=== PATIENT | female | born 1990 | race Caucasian/White ===

== ENCOUNTER 2017-12-09 09:02 | Emergency (ER) | payer OTHER ==
[2017-12-09 09:24] VITALS: BP 118/72
--- NOTE | 2017-12-09 10:44 | UC ---
Complaint Female HPI - HPI Summary HPI Summary: 2 WEEKS OF DYSURIA, FREQUENCY AND MALODOROUS WHITE VAGINAL DISCHARGE. HAS SOME PERINEAL IRRITATION. DENIES VAGINAL BLEEDING, FEVER, NAUSEA OR BACK PAIN. HAS UNPROTECTED SEX WITH . IS IN A MONOGAMOUS RELATIONSHIP WITH HIM AND IS NOT CONCERNED ABOUT STD. - History Of Current Complaint Chief Complaint: UCGU Stated Complaint: URINARY COMPLAINT Time Seen by Provider: 12/09/17 09:45 Hx Obtained From: Patient Hx Last Menstrual Period: IUD Onset/Duration: Gradual Onset, Lasting Weeks, Still Present Timing: Constant Severity Initially: Moderate Severity Currently: Moderate Pain Intensity: 2 Pain Scale Used: 0-10 Numeric Character: Burning Aggravating Factor(s): Nothing Associated Signs And Symptoms: Positive: Vaginal Discharge. Negative: Fever, Back Pain, Nausea - Allergies/Home Medications Allergies/Adverse Reactions: Allergies Allergy/AdvReac Type Severity Reaction Status Date / Time No Known Allergies Allergy Verified 12/09/17 09:18 Home Medications: Home Medications Levonorgestrel (Iud) [Mirena IUD] 1 imp ONCE 12/09/17 [History Confirmed ] PMH/Surg Hx/FS Hx/Imm Hx Previously Healthy: Yes - Surgical History Surgical History: Yes Surgery Procedure, Year, and Place: b/l inguinal hernia as infant. gallbladder - Family History Known Family History: Positive: Cardiac Disease, Hypertension - Social History Alcohol Use: None Substance Use Type: None Smoking Status (MU): Heavy Every Day Tobacco Smoker Type: Cigarettes Amount Used/How Often: 1 PPD Review of Systems Constitutional: Negative Respiratory: Negative Cardiovascular: Negative Gastrointestinal: Negative Genitourinary: Dysuria, Frequency, Vaginal/Penile Discharge All Other Systems Reviewed And Are Negative: Yes Physical Exam Triage Information Reviewed: Yes Appearance: Well-Appearing, No Pain Distress, Well-Nourished Vital Signs: Initial Vital Signs Temp 98.7 F 12/09/17 09:19 Pulse 79 12/09/17 09:19 Resp 16 12/09/17 09:19 BP 118/72 12/09/17 09:19 Pulse Ox 100 12/09/17 09:19 Vital Signs Reviewed: Yes Eyes: Positive: Conjunctiva Clear ENT: Positive: Hearing grossly normal Neck: Positive: Supple Respiratory: Positive: No respiratory distress, No accessory muscle use Cardiovascular: Positive: Pulses Normal Abdomen Description: Positive: Nontender, Soft. Negative: CVA Tenderness (R), CVA Tenderness (L), Distended, Guarding Musculoskeletal: Positive: No Edema Neurological: Positive: Alert Psychological: Positive: Age Appropriate Behavior Skin: Negative: rashes UC Physical Exam Vital Signs On Initial Exam: Initial Vitals Temp Pulse Resp BP Pulse Ox 98.7 F 79 16 118/72 100 12/09/17 09:19 12/09/17 09:19 12/09/17 09:19 12/09/17 09:19 12/09/17 09:19 - Genitalia Exam Female Genitourinary: Normal External Exam, Other - THIN WHITE/GREEN MALODOROUS DISCHARGE IN VAGINAL VAULT. IUD STRINGS VISUALIZED. NO CMT OR ADNEXAL TENDERNESS. Diagnostics - Laboratory Diagnostic Studies Completed/Ordered: URINE DIP SP. GR. 1.020, 1+ PROTEIN, 1+ BILI, TRACE KETONES Complaint Female Dx - Course Course Of Treatment: GIVEN SX AND CLINICAL PRESENTATION WILL TX EMPIRICALLY FOR BV. SWAB SENT FOR TESTING. - Differential Dx/Diagnosis Provider Diagnoses: BACTERIAL VAGINOSIS Discharge - Discharge Plan Condition: Stable Disposition: HOME Prescriptions: Metronidazole [Flagyl 500 MG TAB] 500 mg PO BID #14 tab Patient Education Materials: Bacterial Vaginosis (ED), Vaginitis (ED) Referrals: Non Staff,Doctor [Primary Care Provider] - Additional Instructions: SWAB DONE TODAY AND SENT FOR TESTING FOR BV, YEAST AND TRICHOMONAS. WE WILL CALL YOU IF YOUR TREATMENT NEEDS TO BE ALTERED. URINE TEST NEGATIVE FOR UTI. FOLLOW-UP WITH PCP OR HIDE PASTER IF NEEDED. CALL THE NUMBER BELOW FOR ASSISTANCE IN ESTABLISHING WITH A PCP An additional resource available to assist in finding the appropriate physician for your health care needs is the [facility] ([facility]). You may contact them by calling [phone].
== END 2017-12-09 10:55 | disposition home or self-care (01) ==
LOC: UCCORT 09:02
DX: N76.0 Acute vaginitis (principal); F17.210 Nicotine dependence, cigarettes, uncomplicated
CPT/HCPCS: 81003; 87480; 87510; 87660; 99212; G0463

== ENCOUNTER 2018-01-16 15:57 | Emergency (ER) | payer OTHER ==
--- NOTE | 2018-01-16 17:42 | UC ---
Respiratory Complaint HPI - HPI Summary HPI Summary: 27 y/o female presents to the urgent care c/o productive cough w/ green phlegm for the past week. Pt reports sore throat and low grade fever started about 2 days ago. Pain w/ swallowing is 7/10. She took 3 tabs of amoxicillin PO she had at home at the beginning of symptoms. She thinks it helped. Pt has been taking a lot of cough drops that her tongue is burning. Pt denies SOB, wheezing , SOB, chest pain, abdominal pain, N/V/D. - History of Current Complaint Hx Obtained From: Patient Hx Last Menstrual Period: IUD Onset/Duration: Gradual Onset, Lasting Days - 1 week, Still Present, Worse Since - 2 days Timing: Constant Severity Initially: Mild Severity Currently: Moderate Pain Intensity: 7 - sore throat Pain Scale Used: 0-10 Numeric Character: Cough: Nonproductive Aggravating Factors: Recumbent Position Alleviating Factors: OTC Meds Associated Signs And Symptoms: Positive: Chills, Nasal Congestion - Risk Factors Pulmonary Embolism Risk Factors: Negative Cardiac Risk Factors: Negative Pseudomonas Risk Factors: Negative Tuberculosis Risk Factors: Negative <Catia Campbell - Last Filed: 01/16/18 18:55> <Felicita Licona - Last Filed: 01/16/18 19:14> - History of Current Complaint Stated Complaint: COUGH, SORE THROAT Time Seen by Provider: 01/16/18 17:39 - Allergies/Home Medications Allergies/Adverse Reactions: Allergies Allergy/AdvReac Type Severity Reaction Status Date / Time No Known Allergies Allergy Verified 01/16/18 17:59 Home Medications: Home Medications Levonorgestrel (Iud) [Mirena IUD] 20 mcg IU DAILY 01/16/18 [History Confirmed ] PMH/Surg Hx/FS Hx/Imm Hx Previously Healthy: Yes - Pt denies PMHX - Surgical History Surgical History: Yes Surgery Procedure, Year, and Place: b/l inguinal hernia as . gallbladder - Family History Known Family History: Positive: Cardiac Disease, Hypertension - Social History Occupation: Employed Full-time Lives: With Family Alcohol Use: None Substance Use Type: None Smoking Status (MU): Heavy Every Day Tobacco Smoker Type: Cigarettes Amount Used/How Often: 1 PPD <Catia Campbell - Last Filed: 01/16/18 18:55> Review of Systems Constitutional: Fever - low grade fever at home Skin: Negative Eyes: Negative ENT: Sore Throat, Nasal Discharge Respiratory: Cough - productive w/ yellowish phlegm Cardiovascular: Negative Gastrointestinal: Negative Genitourinary: Negative Motor: Negative Neurovascular: Negative Musculoskeletal: Negative Neurological: Negative Psychological: Negative Is Patient Immunocompromised?: No All Other Systems Reviewed And Are Negative: Yes <TamayoMarlonCatia - Last Filed: 01/16/18 18:55> Physical Exam - Summary Physical Exam Summary: VITAL SIGNS: Reviewed. GENERAL: Patient is a well developed and nourished female who is sitting comfortable in the examining table. Patient is not in any acute respiratory distress. HEAD AND FACE: No signs of trauma. No ecchymosis, hematomas or skull depressions. No sinus tenderness. EYES: PERRLA, EOMI x 2, No injected conjunctiva, no nystagmus. No photophobia. EARS: Hearing grossly intact. Ear canals and tympanic membranes are within normal limits. MOUTH: Positive pharynx with erythema, exudates, palatal petechiae. B/L tonsillar enlargement with exudate. Uvula in midline. NECK: Supple, trachea is midline, Positive anterior cervical lymphadenopathy, no JVD, no carotid bruit, no c-spine tenderness, neck with full ROM. No meningeal signs, no Kernig's or brudzinskis signs. CHEST: Symmetric, no tenderness at palpation LUNGS: positive breath sound, Positive posterior upper B/L w/ mild rhonchi, no wheezes, no crackles, or rales CVS: Regular rate and rhythm, S1 and S2 present, no murmurs or gallops appreciated. ABDOMEN: Soft, non-tender. No signs of distention. No rebound no guarding, and no masses palpated. Bowel sounds are normal. EXTREMITIES: FROM in all major joints, no edema, no cyanosis or clubbing. NEURO: Alert and oriented x 3. No acute neurological deficits. Speech is normal and follows commands. SKIN: Dry and warm Triage Information Reviewed: Yes <AdrianCatia - Last Filed: 01/16/18 18:55> Vital Signs: Initial Vital Signs Temp 99.2 F 01/16/18 17:56 Pulse 92 01/16/18 17:56 Resp 16 01/16/18 17:56 BP 136/74 01/16/18 17:56 Pulse Ox 99 01/16/18 17:56 <Felicita Licona - Last Filed: 01/16/18 19:14> Respiratory Course/Dx - Course Course Of Treatment: 27 y/o female presents to the urgent care c/o productive cough w/ green phlegm for the past week. Pt reports sore throat and low grade fever started about 2 days ago. Pain w/ swallowing is 7/10. She took 3 tabs of amoxicillin PO she had at home at the beginning of symptoms. She thinks it helped. Pt has been taking a lot of cough drops that her tongue is burning. Pt denies SOB, wheezing, SOB, chest pain, abdominal pain, N/V/D. Hx obtained. Pt w / posterior upper lungs w/ mild rhonchi and pharyngitis on examination. Rapid strep ordered: negative. Pt with Acute bronchitis on examination. Pt Rx Z-favio PO and Tessalon tabs PO to alleviate cough. Rx Ibuprofen Po to alleviate pain and swelling. Pt advised to increase fluid intake and eat well. if not improvement or worsening of symptoms to return to the urgent care or f/u with PCP for further management. Pt understood and agreed with plan of care. - Differential Dx/Diagnosis Differential Diagnosis/HQI/PQRI: Bronchitis, Influenza, Sinusitis, Other - pharyngitis, URI Provider Diagnoses: 1-Acute bronchitis. 2-Pharyngitis. 3-cough <Catia Campbell - Last Filed: 01/16/18 18:55> Discharge <Catia Campbell - Last Filed: 01/16/18 18:55> <Felicita Licona - Last Filed: 01/16/18 19:14> - Discharge Plan Condition: Stable Disposition: HOME Prescriptions: Azithromyxin FAVIO (NF) [Z-Favio (Zithromax) 250 mg tabs #6] 2 tab PO .TODAY, THEN 1 DAILY #6 tab Benzonatate CAP* [Tessalon 100 MG CAP*] 100 mg PO TID PRN #21 cap PRN Reason: Cough Ibuprofen TAB* [Motrin TAB* 800 MG] 800 mg PO Q6H PRN #20 tab PRN Reason: Sore Throat Patient Education Materials: Pharyngitis (ED), Acute Bronchitis (ED) Referrals: [facility] [Outside] Additional Instructions: 1-Please take full course of antibiotic to avoid resistance. 2-Take Tessalon PO tabs as directed to alleviate cough. Increase fluid intake , rest and eat well. 3-Take Ibuprofen PO q6-8hrs prn to alleviate pain and swelling. 4- If symptoms do not improve or worsen or your develop SOB with fever and severe wheezing please go immediately to the ER further evaluation and treatment. 5- If not improvement please F/u with your PCP in 2-3 days for further management Attestation Statement User Type: Provider - I was available for consult. This patient was seen by the MILANA. The patient was not presented to, seen by, or examined by me. Gianni <Felicita Licona - Last Filed: 01/16/18 19:14>
[2018-01-16 17:59] VITALS: BP 136/74
== END 2018-01-16 18:42 | disposition home or self-care (01) ==
LOC: UCCORT 15:57
DX: J20.9 Acute bronchitis, unspecified (principal); J02.9 Acute pharyngitis, unspecified; R05 Cough; F17.210 Nicotine dependence, cigarettes, uncomplicated
CPT/HCPCS: 87651; 99212; G0463

== ENCOUNTER 2019-04-02 16:11 | Emergency (ER) | payer SELFPAY ==
[2019-04-02 17:11] VITALS: BP 134/87
--- NOTE | 2019-04-02 17:40 | UC ---
Pediatric Illness HPI - History Of Current Complaint Chief Complaint: UCRespiratory Time Seen by Provider: 04/02/19 17:33 - Allergies/Home Medications Allergies/Adverse Reactions: Allergies Allergy/AdvReac Type Severity Reaction Status Date / Time No Known Allergies Allergy Verified 04/02/19 17:07 Physical Exam Vital Signs: Initial Vital Signs Temp 98.8 F 04/02/19 17:05 Pulse 98 04/02/19 17:05 Resp 20 04/02/19 17:05 BP 134/87 04/02/19 17:05 Pulse Ox 100 04/02/19 17:05 Pediatric Illness Course/Dx - Course Course Of Treatment: cost is a concern for pt thus will tx OM with tid amoxicillin and cough with prednisone and hold off on an inhaler. - Differential Dx/Diagnosis Provider Diagnosis: URI (upper respiratory infection), Otitis media, Bronchitis Discharge - Sign-Out/Discharge Documenting (check all that apply): Patient Departure All imaging exams completed and their final reports reviewed: No Studies - Discharge Plan Condition: Stable Disposition: HOME Prescriptions: Amoxicillin PO (*) [Amoxicillin 500 MG CAP*] 500 mg PO TID 10 Days #30 cap predniSONE [Prednisone 20 MG TAB] 40 mg PO DAILY 3 Days #6 tablet Patient Education Materials: Ear Infection (ED), Upper Respiratory Infection ( DC), Acute Bronchitis (ED) Forms: *Work Release Referrals: JOVANNY Villatoro [Medical Doctor] - 7 Days - Billing Disposition and Condition Condition: STABLE Disposition: Home
--- NOTE | 2019-04-02 18:06 | UC ---
General HPI - HPI Summary HPI Summary: per triage, Headache, left ear pain (now resolved), nasal congestion/discharge, constant sore throat, "terrible ... white, phlemgy" productive cough, and nausea "the only time I throw up is when I cough a lot" for one day. No known fever. Needs a work note. no hx asthma. + smoker, wheezing and some sob. - History of Current Complaint Chief Complaint: UCRespiratory Stated Complaint: SORE THROAT Time Seen by Provider: 04/02/19 17:33 Hx Obtained From: Patient Hx Last Menstrual Period: Mirena IUD Onset/Duration: Gradual Onset Timing: Constant Pain Intensity: 6 Alleviating: nothing - Allergy/Home Medications Allergies/Adverse Reactions: Allergies Allergy/AdvReac Type Severity Reaction Status Date / Time No Known Allergies Allergy Verified 04/02/19 17:07 PMH/Surg Hx/FS Hx/Imm Hx Previously Healthy: Yes - Surgical History Surgical History: Yes Surgery Procedure, Year, and Place: Cholecystectomy, ~2017, [place]; Bilateral Inguinal Herniorrhaphy as an infant - Family History Known Family History: Positive: Cardiac Disease, Hypertension - Social History Lives: With Family Alcohol Use: None Substance Use Type: None Smoking Status (MU): Heavy Every Day Tobacco Smoker Type: Cigarettes Amount Used/How Often: 1 PPD Length of Time of Smoking/Using Tobacco: Since Age 18 Review of Systems All Other Systems Reviewed And Are Negative: Yes Constitutional: Negative: Fever ENT: Positive: Sore Throat, Ear Ache, Nasal Discharge Respiratory: Positive: Shortness Of Breath, Cough Neurological: Positive: Headache Physical Exam Triage Information Reviewed: Yes Appearance: Well-Appearing Vital Signs: Initial Vital Signs Temp 98.8 F 04/02/19 17:05 Pulse 98 04/02/19 17:05 Resp 20 04/02/19 17:05 BP 134/87 04/02/19 17:05 Pulse Ox 100 04/02/19 17:05 Vital Signs Reviewed: Yes Eyes: Positive: Conjunctiva Clear ENT: Positive: Pharyngeal erythema - slight, Nasal congestion, Nasal drainage - clear, TMs normal - R, TM red - L, Uvula midline. Negative: Trismus, Muffled voice, Hoarse voice, Sinus tenderness Neck: Positive: Supple, Nontender, Enlarged Nodes @ - peritonsialr nodes Respiratory: Positive: No respiratory distress, Decreased breath sounds, Other: - Bronchospastic-congested cough.. Negative: Crackles, Rhonchi Cardiovascular: Positive: RRR, No Murmur Abdomen Description: Positive: Nontender Musculoskeletal: Positive: ROM Intact Neurological: Positive: Alert Psychological: Positive: Normal Response To Family, Age Appropriate Behavior Skin Exam: Normal Course/Dx - Course Course Of Treatment: medication cost is an issue thus amoxicillin tid being used plus will avoid albuterol mdi and tx with prednisone x 3 days. - Differential Dx - Multi-Symptom Differential Diagnoses: Other - L OM x 2 days thus will tx with antibiotic. - Diagnoses Provider Diagnosis: URI (upper respiratory infection), Otitis media, Bronchitis Discharge - Sign-Out/Discharge Documenting (check all that apply): Patient Departure All imaging exams completed and their final reports reviewed: No Studies - Discharge Plan Condition: Stable Disposition: HOME Prescriptions: Amoxicillin PO (*) [Amoxicillin 500 MG CAP*] 500 mg PO TID 10 Days #30 cap predniSONE [Prednisone 20 MG TAB] 40 mg PO DAILY 3 Days #6 tablet Patient Education Materials: Ear Infection (ED), Upper Respiratory Infection ( DC), Acute Bronchitis (ED) Forms: *Work Release Referrals: JOVANNY Villatoro [Medical Doctor] - 7 Days - Billing Disposition and Condition Condition: STABLE Disposition: Home - Attestation Statements Provider Attestation: Per institutional requirements, I have reviewed the chart, however, I was not consulted specifically or made aware of this patient by the midlevel provider. I did not personally evaluate, interact with , or disposition this patient.
== END 2019-04-02 17:59 | disposition home or self-care (01) ==
LOC: UCCORT 16:11
DX: J06.9 Acute upper respiratory infection, unspecified (principal); H66.92 Otitis media, unspecified, left ear; J40 Bronchitis, not specified as acute or chronic; F17.210 Nicotine dependence, cigarettes, uncomplicated
CPT/HCPCS: 99212; G0463

== ENCOUNTER 2020-01-30 16:49 | Emergency (ER) | payer OTHER ==
[2020-01-30 17:01] VITALS: BP 114/70
--- NOTE | 2020-01-30 17:04 | UC ---
Respiratory Complaint HPI - HPI Summary HPI Summary: 29-year-old female who has had cold and cough symptoms over the past 3 days. She is a smoker. - History of Current Complaint Chief Complaint: UCRespiratory Stated Complaint: COUGH/CHEST CONGESTION/SORE THROAT Time Seen by Provider: 01/30/20 17:00 Hx Obtained From: Patient Hx Last Menstrual Period: 01/23/20 ?: No Onset/Duration: Gradual Onset, Lasting Days Timing: Intermittent Episodes Severity Initially: Mild Severity Currently: Mild Pain Intensity: 0 Character: Cough: Nonproductive Aggravating Factors: Deep Breaths Alleviating Factors: Nothing Associated Signs And Symptoms: Positive: Wheezing, URI, Nasal Congestion - Allergies/Home Medications Allergies/Adverse Reactions: Allergies Allergy/AdvReac Type Severity Reaction Status Date / Time No Known Allergies Allergy Verified 01/30/20 16:58 Home Medications: Home Medications Levonorgestrel (Iud) [Mirena IUD] 20 mcg IU DAILY 01/16/18 [History Confirmed ] Albuterol HFA INHALER* [Ventolin HFA Inhaler*] 2 puff INH Q4H PRN 5 Days #1 mdi 01/30/20 [Rx] Benzonatate CAP* [Tessalon 100 MG CAP*] 100 mg PO TID PRN #30 cap 01/30/20 [Rx] predniSONE 10 mg TAB [Deltasone 10 MG TAB*] 10 mg PO DAILY 12 Days #30 tab 01/29 [Rx] PMH/Surg Hx/FS Hx/Imm Hx Previously Healthy: Yes - Surgical History Surgical History: Yes Surgery Procedure, Year, and Place: Cholecystectomy, ~2017, [place]; Bilateral Inguinal Herniorrhaphy as an - Family History Known Family History: Positive: Cardiac Disease, Hypertension - Social History Occupation: Employed Full-time Lives: With Family Alcohol Use: None Substance Use Type: None Smoking Status (MU): Heavy Every Day Tobacco Smoker Type: Cigarettes Amount Used/How Often: 1 PPD Length of Time of Smoking/Using Tobacco: Since Age 18 Review of Systems All Other Systems Reviewed And Are Negative: Yes ENT: Positive: Nasal Discharge, Sinus Congestion Respiratory: Positive: Cough - Cough with wheezing Is Patient Immunocompromised?: No Physical Exam Triage Information Reviewed: Yes Appearance: Well-Appearing, No Pain Distress, Well-Nourished Vital Signs: Initial Vital Signs Temp 98.3 F 01/30/20 16:58 Pulse 68 01/30/20 16:58 Resp 16 01/30/20 16:58 BP 114/70 01/30/20 16:58 Pulse Ox 100 01/30/20 16:58 Vital Signs Reviewed: Yes Eyes: Positive: Conjunctiva Clear ENT: Positive: Pharynx normal, Nasal congestion, Nasal drainage - Clear nasal coryza, TMs normal, Uvula midline Neck: Positive: Supple, Nontender, No Lymphadenopathy Respiratory: Positive: No respiratory distress, No accessory muscle use, Wheezing - Wheezing with forced expiration posteriorly.. Negative: Rhonchi Cardiovascular: Positive: RRR, No Murmur, Pulses Normal, Brisk Capillary Refill Musculoskeletal Exam: Normal Neurological Exam: Normal Psychological Exam: Normal Skin Exam: Normal Respiratory Course/Dx - Course Course Of Treatment: DuoNeb treatment: The patient felt much better following the DuoNeb treatment however she does have continued wheezing but decreased wheezing and better air movement. She is in no distress and she is comfortable here. - Differential Dx/Diagnosis Provider Diagnosis: Bronchitis Discharge ED - Sign-Out/Discharge Documenting (check all that apply): Patient Departure All imaging exams completed and their final reports reviewed: No Studies - Discharge Plan Condition: Good Disposition: HOME Prescriptions: Albuterol HFA INHALER* [Ventolin HFA Inhaler*] 2 puff INH Q4H PRN 5 Days #1 mdi PRN Reason: Wheezing Benzonatate CAP* [Tessalon 100 MG CAP*] 100 mg PO TID PRN #30 cap PRN Reason: Cough predniSONE 10 mg TAB [Deltasone 10 MG TAB*] 10 mg PO DAILY 12 Days #30 tab Patient Education Materials: Acute Bronchitis (ED) Forms: *Work Release Referrals: [facility] [Outside] [facility] [Outside] No Primary Care Phys,NOPCP [Primary Care Provider] - Additional Instructions: Increase fluids, use her albuterol inhaler 2 puffs every 4-6 hours as needed for wheezing, take the prednisone with food, [facility] you have no improvement in 4-5 days. If you have any worsening symptoms, shortness of breath, difficulty breathing, you are to go to the emergency room. - Billing Disposition and Condition Condition: GOOD Disposition: Home
[2020-01-30] MEDS ORDERED: Albuterol/Ipratropium NEB.SOL* Albuterol 2.5 MG/Ipratropium 0.5 MG 3 ML INH ONE (17:10)
== END 2020-01-30 18:00 | disposition home or self-care (01) ==
LOC: UCCORT 16:49
DX: J40 Bronchitis, not specified as acute or chronic (principal); R09.89 Other specified symptoms and signs involving the circulatory and respiratory systems; F17.210 Nicotine dependence, cigarettes, uncomplicated
CPT/HCPCS: 99212; A9270-GY; G0463